=== PATIENT | male | born 1955 | race African-American/Black ===

== ENCOUNTER 2017-06-07 09:26 | Emergency (ER) | payer MEDICAID, OTHER ==
[~2017-06-07] VITALS: Ht 203.2 cm; Wt 115.7 kg
[2017-06-07 10:23] LABS: BASOPHILS % (AUTO) 1.1 % (0.0-2.0); EOSINOPHILS % (AUTO) 2.9 % (0.0-3.0); LYMPHOCYTES % (AUTO) 25.3 % (20.0-45.0); MEAN CORPUSCULAR HEMOGLOBIN 27.8 PG (27.0-31.0); MEAN CORPUSCULAR HGB CONC 31.2 G/DL (32.0-36.0); MEAN CORPUSCULAR VOLUME 89 FL (80-99); MEAN PLATELET VOLUME 6.6 FL (6.5-10.1); MONOCYTES % (AUTO) 7.6 % (1.0-10.0); NEUTROPHILS % (AUTO) 63.2 % (45.0-75.0); PLATELET COUNT 247 K/UL (150-450); RED BLOOD COUNT 4.25 M/UL (4.70-6.10); WHITE BLOOD COUNT 7.1 K/UL (4.8-10.8)
[2017-06-07 10:26] LABS: INR 1.2 (0.9-1.1); PROTHROMBIN TIME 12.1 SEC (9.30-11.50)
[2017-06-07 10:27] VITALS: BP 104/63
[2017-06-07 10:38] LABS: ANION GAP 9 mmol/L (5-15); CALCIUM 9.7 MG/DL (8.5-10.1); CARBON DIOXIDE 28 MMOL/L (21-32); CHLORIDE 103 MMOL/L (98-107); CREATININE 1.1 MG/DL (0.55-1.30); GLOMERULAR FILTRATION RATE > 60 mL/min (>60); POTASSIUM 4.1 MMOL/L (3.5-5.1); SODIUM 140 MMOL/L (136-145)
[2017-06-07 10:53] LABS: ALANINE AMINOTRANSFERASE 18 U/L (12-78); ALBUMIN/GLOBULIN RATIO 0.7 (1.0-2.7); ASPARTATE AMINO TRANSFERASE 17 U/L (15-37); CKMB 1.7 NG/ML (0.0-3.6)
[2017-06-07 12:06] VITALS: BP 110/62
[2017-06-07] MEDS ORDERED: NORVASC10 MG ORAL (12:37)
[2017-06-07] MEDS ORDERED: FERROUS SULFAT325 MG ORAL (12:37)
[2017-06-07] MEDS ORDERED: COREG12.5 MG ORAL (12:37)
[2017-06-07] MEDS ORDERED: COZAAR100 MG ORAL (12:37)
[2017-06-07] MEDS ORDERED: PRAVASTATIN SOD40 M1 ORAL (12:37)
[2017-06-07] MEDS ORDERED: VITAMIN B12-FO1 EAC1 PO (12:45)
[2017-06-07] MEDS ORDERED: VITAMIN D1000 UNI1 ORAL (12:45)
[2017-06-07] MEDS ORDERED: XARELTO20 MG ORAL (12:45)
[2017-06-07] MEDS ORDERED: Morphine Sulfate 2mg/ml Inj IVP ONE (13:00)
[2017-06-07 14:00] VITALS: BP 131/79
[2017-06-07 15:00] VITALS: BP 126/80
--- NOTE | 2017-06-07 15:34 | Emergency Room Report ---
History of Present Illness General Chief Complaint: Stroke Symptoms Source: Patient Present Illness HPI The patient is a 61-year-old male presented after increased right-sided shoulder pain as well as right upper extremity pain and numbness. Patient had not been having any fever. He reports having some associated pain in his chest. The patient prior history of Marfan's disease as well as aortic valve replacement with a reportedly bovine valve. Patient be anticoagulated with xarelto approximately 2 months. He reports having onset of numbness and weakness after waking up approximately 2-3 days ago. Patient denied any shortness of breath. He denied any facial weakness or numbness. The patient had been previously noted to have history of arthritis Allergies: Coded Allergies: No Known Allergies (Verified , 09/16/08) Patient History Past Medical History: see triage record Reviewed Nursing Documentation: PMH: Agreed, PSxH: Agreed Nursing Documentation-PMH Past Medical History: No History, Except For Hx Cardiac Problems: Yes - AORTIC REPAIR X 2 Hx Hypertension: Yes Review of Systems Cardiovascular: Reports: see HPI, chest pain, other Musculoskeletal: Reports: see HPI, back pain, joint pain, joint swelling, muscle pain, muscle stiffness, other Neurological: Reports: see HPI, numbness, paresthesia, tingling, focal weakness , other Physical Exam Vital Signs Date Time Temp Pulse Resp B/P (MAP) Pulse Ox O2 Delivery O2 Flow Rate FiO2 06/07/17 09:30 97.3 70 18 135/76 99 Room Air General Appearance: alert, GCS 15, non-toxic, Chronically Ill Eyes: bilateral eye normal inspection ENT: hearing grossly normal, normal pharynx Neck: normal inspection, full range of motion Respiratory: lungs clear, normal breath sounds, no rhonchi Cardiovascular #1: irregularly irregular Gastrointestinal: normal inspection, non tender Musculoskeletal: swelling - mul Neurologic: normal inspection, alert, oriented x3, responsive, trimmer climber III-XII nml as tested Skin: normal inspection, no rash Medical Decision Making Diagnostic Impression: Primary Impression: Dissection of carotid artery Additional Impressions: Aortic dissection Marfan syndrome AAA (abdominal aortic aneurysm) ER Course Patient presented for right upper extremity pain. Differential diagnosis included was not limited to aortic dissection, a vascular insufficiency, CVA, embolic stroke among other. Because of complexity of patient's case laboratory testing and imaging studies were ordered.CT the head read by radiology showed evidence of possible basal ganglia CVA. CT of the chest abdomen pelvis read by radiology showed evident ascending and descending aortic dissection, left carotid dissection. The patient was noted to be in atrial fibrillation. The patient appeared to have adequate pulses and perfusion to his right upper extremity. Dr. Danielson from [facility] was contacted for capitated facility and he agreed that patient needed higher level of care than available at [facility]. Dr. Jose Luis Cronin at [facility] was contacted for higher lever of care transferred due to patient's vascular issues. Labs Test 06/07/17 09:55 White Blood Count 7.1 K/UL (4.8-10.8) Red Blood Count 4.25 M/UL (4.70-6.10) Hemoglobin 11.8 G/DL (14.2-18.0) Hematocrit 38.0 % (42.0-52.0) Mean Corpuscular Volume 89 FL (80-99) Mean Corpuscular Hemoglobin 27.8 PG (27.0-31.0) Mean Corpuscular Hemoglobin Concent 31.2 G/DL (32.0-36.0) Red Cell Distribution Width 14.0 % (11.6-14.8) Platelet Count 247 K/UL (150-450) Mean Platelet Volume 6.6 FL (6.5-10.1) Neutrophils (%) (Auto) 63.2 % (45.0-75.0) Lymphocytes (%) (Auto) 25.3 % (20.0-45.0) Monocytes (%) (Auto) 7.6 % (1.0-10.0) Eosinophils (%) (Auto) 2.9 % (0.0-3.0) Basophils (%) (Auto) 1.1 % (0.0-2.0) Prothrombin Time 12.1 SEC (9.30-11.50) Prothromb Time International Ratio 1.2 (0.9-1.1) Activated Partial Thromboplast Time 42 SEC (23-33) Sodium Level 140 MMOL/L (136-145) Potassium Level 4.1 MMOL/L (3.5-5.1) Chloride Level 103 MMOL/L (98-107) Carbon Dioxide Level 28 MMOL/L (21-32) Anion Gap 9 mmol/L (5-15) Blood Urea Nitrogen 10 mg/dL (7-18) Creatinine 1.1 MG/DL (0.55-1.30) Estimat Glomerular Filtration Rate > 60 mL/min (>60) Glucose Level 82 MG/DL (74-106) Calcium Level 9.7 MG/DL (8.5-10.1) Total Bilirubin 0.6 MG/DL (0.2-1.0) Aspartate Amino Transf (AST/SGOT) 17 U/L (15-37) Alanine Aminotransferase (ALT/SGPT) 18 U/L (12-78) Alkaline Phosphatase 59 U/L (46-116) Total Creatine Kinase 125 U/L (26-308) Creatine Kinase MB 1.7 NG/ML (0.0-3.6) Creatine Kinase MB Relative Index 1.3 Troponin I 0.000 ng/mL (0.000-0.056) Total Protein 9.0 G/DL (6.4-8.2) Albumin 3.7 G/DL (3.4-5.0) Globulin 5.3 g/dL Albumin/Globulin Ratio 0.7 (1.0-2.7) EKG Diagnostic Results Rhythm: other ST Segments: other - afib 68 right bundle branch block CT/MRI/US Diagnostic Results CT/MRI/US Diagnostic Results : Imaging Test Ordered: Ct chest abd pelvis Impression CT of chest abdomen pelvis showed multiple areas of abnormal vasculature including the left carotid dissection, descending and descending aorta dissection, abdominal aortic aneurysm among others. See radiology report for full list of findings. Last Vital Signs Date Time Temp Pulse Resp B/P (MAP) Pulse Ox O2 Delivery O2 Flow Rate FiO2 06/07/17 14:00 68 18 131/79 96 Room Air 06/07/17 12:06 98.1 Status: improved Disposition: XFER SHT-TRM HOSP Condition: Serious Referrals: [facility],REFERRING (PCP) Luis Carlos Martinez Jun 07, 2017 15:34
[2017-06-07 15:41] VITALS: BP 122/71
--- NOTE | 2017-06-10 10:04 | Diagnostic Imaging Report ---
Indication: Right-sided weakness and numbness Technique: Continuous helical CT scanning of the head was performed utilizing automated exposure control without intravenous contrast material. Axial and coronal reconstructions were obtained. Comparison: None CT dose: Total DLP 1407 mGycm; CTDI vol 70.5 mGy Findings: There is no acute intracranial hemorrhage. No midline shift. There is a focal hypodensity in the left basal ganglia (series 3 image 16) may be artifactual or may be related to ischemia. Size and configuration the ventricular system is within normal limits. The posterior fossa and fourth ventricle are unremarkable. Sellar and suprasellar regions are grossly unremarkable. Visualized mastoid air cells and paranasal sinuses are unremarkable. No focal lesions of the bony calvarium or soft tissues of the scalp are seen. Impression: Subtle asymmetric focal hypodensity in the left basal ganglia. Ischemia cannot be excluded. Correlation with noncontrast MRI of the brain is recommended. Discussed with treating ER physician Dr. Martinez via telephone conversation at approximately 10:45 AM on 06/07/[address] scanner at [facility] is accredited by the [employer] and the scans are performed using protocols designed to limit radiation exposure to as low as reasonably achievable to attain images of sufficient resolution adequate for diagnostic evaluation.
--- NOTE | 2017-06-10 10:04 | Diagnostic Imaging Report ---
Indication: Altered mental status Technique: XRAY CHEST 1 V Comparison: 09/18/2008 Findings: Heart appears enlarged. The patient is status post median sternotomy. Mediastinal borders are sharp. The thoracic aorta appears abnormally dilated. There is linear opacification in the left midlung and patchy opacification at the right base. There is questionable left pleural effusion. No pneumothorax. No acute osseous or body seen. Impression: Linear left midlung and patchy right basilar opacities may represent atelectasis. Correlate clinically to exclude developing pneumonia. Question small left pleural effusion. Probable cardiomegaly. Probable aneurysmal dilatation of the thoracic aorta.
--- NOTE | 2017-06-10 10:04 | Diagnostic Imaging Report ---
CT ANGIOGRAPHY OF THE CHEST, ABDOMEN AND PELVIS Indication: Pain. Technique: IV administration nonionic contrast. Multiphasic spiral acquisition obtained through the lower neck, chest, abdomen and pelvis. Multiplanar reconstructions were generated. 3-D volumetric reconstructions were also is an submitted to PACS. Total dose length product 1590 mGycm. CTDIvol(s) 0.2, 8.1, 81.1, 20 mGy. Dose reduction achieved using automated exposure control Comparison: Noncontrast CT of the chest 09/19/2008 Findings: Prosthetic aortic valve noted. There is likely super coronary graft material, with possible suture line in the proximal ascending aorta (series 6 image #47). The origins of the coronary arteries are noted and patent. There is evidence of graft repair of the thoracic aorta with graft material noted from the distal arch to the distal descending aorta. Proximal portion of the graft starts just after the origin of the left subclavian artery. There is a dissection flap involving the ascending aorta and proximal arch, extending into the left common carotid artery and the left subclavian artery. The dissection in the left subclavian artery seems to extend past the origin of the left vertebral artery. There is symmetric contrast enhancement of the left vertebral artery. The dissection in the left common carotid artery seems to extend up to the carotid bifurcation. The distal left common artery is asymmetrically dilated compared to the right. The right brachiocephalic artery, subclavian artery, vertebral artery and right common carotid artery are patent and without evidence of dissection. There are linear regions within the proximal portion of the presumed aortic graft material (series 6 [id number]; series 10 image #78) which may be related to complex folding of the graft material versus dissection. The distal descending thoracic aorta after the distal anastomosis of the graft is tortuous and aneurysmally dilated up to 4.2 cm in diameter. A dissection is noted within the distal thoracic aorta, starting a few centimeters above the aortic hiatus. This dissection spans into the common iliac artery on the right into the proximal external iliac artery on the left. The larger lumen at level of aortic hiatus gives rise to the celiac artery. The smaller, more anterior lumen is noted to give rise to the the superior mesenteric artery, bilateral renal arteries and inferior mesenteric artery. The abdominal aorta at the level of the renal arteries is dilated to 4.3 cm. The infrarenal abdominal aorta is dilated to 3.7 cm. The right common iliac artery is dilated to 2.4 cm. The left common iliac artery is dilated up to 2.6 cm. There is asymmetric decreased contrast opacification within the lumens of the dissection in the left internal iliac artery. There is decreased contrast opacification of the left external iliac artery, common femoral artery and superficial femoral artery when compared to the right. Heart size is within normal limits. There is no pericardial effusion. There is dependent atelectasis and scarring in the lower lobes., Gallbladder, adrenal glands, spleen and pancreas grossly unremarkable. There is an extra renal pelvis on the left. Both right and left renal cyst. No hydronephrosis or stones bilaterally. Bladder is unremarkable in appearance. Prostate is mildly enlarged. There is no bowel obstruction. There is colonic diverticulosis without evidence of suggest acute diverticulitis. There are multiple degenerative changes of the thoracolumbar spine. No acute osseous or body is seen. Patient is status post median sternotomy. There is a 3.8 cm well-circumscribed fluid collection in the umbilical region. There is questionable communication to the bladder on sagittal views. Impression: Status post aortic valve replacement and graft repair of the thoracic aorta. Dissection of the ascending aorta with dissection flaps extending into the left common carotid and subclavian shira -- vonda. 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 There is asymmetric decreased flow in the left external iliac artery and arteries the left leg compared to the right. Please see above for more detailed description of vascular pathology. Findings discussed with treating ER physician Dr. Martinez via telephone conversation at approximately 12:35 PM on 06/07/2017. 3.8 cm fluid collection in the subcutaneus tissues of the umbilical region question indication the bladder on sagittal views. Findings may represent a congenital urachal anomaly (patent urachus vs vesicourachal diverticulum) Diverticulosis. No acute diverticulitis. Prostatomegaly.
== END 2017-06-07 15:41 | disposition short-term general hospital (02) ==
LOC: EMR 10:03
DX: I77.71 Dissection of carotid artery (principal); I71.01 Dissection of thoracic aorta; Q87.40 Marfan syndrome, unspecified; I71.4 Abdominal aortic aneurysm, without rupture; I10 Essential (primary) hypertension
CPT/HCPCS: 36415; 70450; 71010; 71275; 74174; 80053; 82550; 82553; 84484; 85025; 85610; 85730; 93005; 96374; 99285; J2270; Q9967